=== PATIENT | female | born 1960 | race Caucasian/White ===

== ENCOUNTER 2021-03-31 10:34 | Emergency (ER) | payer OTHER, SELFPAY ==
--- NOTE | ~2021-03-31 | XR_ITS ---
EXAMINATION: XR chest 2V 03/31/2021 11:41 INDICATION: Productive cough PROCEDURE: 2 view chest COMPARISON: No prior studies for comparison. FINDINGS: The lungs are clear. The cardiomediastinal silhouette is within normal limits. There are no pleural effusions. There is no pneumothorax suspected. There is scoliosis. IMPRESSION: 1: NO ACUTE CARDIOPULMONARY DISEASE. Reviewed, dictated and finalized at location B.
[2021-03-31 11:23] VITALS: BP 144/77; PULSE 87; RESP 20; TEMP 36.7; O2SAT 98
--- NOTE | 2021-03-31 11:23 | ED.URI ---
HPI - URI/Sore Throat General Chief Complaint: Upper Respiratory Infection Stated Complaint: cough/sore throat Time Seen by Provider: 03/31/21 11:23 Source: patient Mode of arrival: ambulatory Limitations: no limitations History of Present Illness HPI Narrative: Lalitha Hernandez is a 60 yo female with debilitating depression, diabetes, hypertension, who comes with upper respiratory symptoms including a cough that started on Saturday, scratchy throat generally not feeling well she had a rapid Covid test on Saturday that was ordered by her primary care physician. Patient is not improved and is here for evaluation Related Data Allergies Allergy/AdvReac Type Severity Reaction Status Date / Time Penicillins Allergy Intermediate Rash Verified 03/31/21 11:22 Review of Systems Review of Systems: Narrative: CONSTITUTIONAL: Denies fever, chills, sweats. EYES: Denies visual changes, redness, discharge. ENT: Denies rhinorrhea, has congestion, has sore throat, otalgia. CARDIOVASCULAR: Denies chest pain, palpitations, edema. RESPIRATORY: Denies dyspnea, wheezing, has cough GASTROINTESTINAL: Denies abdominal pain, nausea, vomiting, diarrhea. GENITOURINARY: Denies dysuria, hematuria, abnormal discharge SKIN: Denies rash or itching. NEUROLOGIC: Denies numbness, or focal weakness. PSYCHIATRIC: Denies anxiety or depression. [facility] Past Medical History Medical History (Updated 03/31/21 @ 12:01 by Alaina Villalobos CNP) Depression Diabetes Hypertension Family History Family History (Updated 03/31/21 @ 11:28 by Alaina Villalobos CNP) Other Diabetes mellitus Hypertension Social History Social History Smoking status: Never smoker Alcohol intake: never Comments At time of signature, I agree with nursing past medical, surgical, social and family history. There is no relevant family history pertinent to the presenting complaint. Exam Narrative: Exam Narrative: GENERAL: This is a well-nourished, well-developed patient, in mild distress. Obese HEAD: normocephalic, atraumatic. EYES: Sclera clear/white. Vision is grossly intact. EARS: External ears normal, auditory canals clear and without drainage, TMs normal without perforation. Hearing grossly intact. NOSE: External nose normal without nasal discharge, nares without redness, no rhinorrhea. THROAT: Mucous membranes moist, posterior pharynx erythema, bilateral submandibular lymph node tenderness and enlargement NECK: Neck supple, CARDIOVASCULAR: Regular rate and rhythm without murmurs, gallops, or rubs. RESPIRATORY: Clear to auscultation. Breath sounds equal bilaterally. No wheezes, rales, or rhonchi. GASTROINTESTINAL: Abdomen soft, non-tender, SKIN: warm, intact with no suspicious lesions or rash, good texture and turgor. NEURO: awake, alert, and oriented to person, place and time. There were no obvious focal neurologic abnormalities. Steady gait EXTREMITIES: Normal range of motion. BACK: Nontender without deformity Course Course Emergency Course: Lalitha Hernandez is a 60-year-old female with debilitating depression hypertension diabetes who comes to [facility] with complaints of scratchy throat cough and pain on breathing She is afebrile Chest x-ray shows no acute cardiopulmonary disease ED patient symptoms symptoms will start on prednisone and antibiotics should follow-up with primary care physician Vital Signs Vital signs: Vital Signs Temperature 98.0 F 03/31/21 11:23 Pulse Rate 87 03/31/21 11:23 Respiratory Rate 20 03/31/21 11:23 Blood Pressure 144/77 H 03/31/21 11:23 Pulse Oximetry 98 03/31/21 11:23 Temperature 98.0 F 03/31/21 11:23 Pulse Rate 87 03/31/21 11:23 Respiratory Rate 20 03/31/21 11:23 Blood Pressure 144/77 H 03/31/21 11:23 Pulse Oximetry 98 03/31/21 11:23 MDM - URI/Sore Throat Differential Diagnosis Differential diagnosis: Likely upper respiratory infection, viral
== END 2021-03-31 12:14 | disposition home or self-care (01) ==
PROVIDERS: Emergency Provider Nurse Practitioner
DX: J02.9 Acute pharyngitis, unspecified (principal); I10 Essential (primary) hypertension; E11.9 Type 2 diabetes mellitus without complications
CPT/HCPCS: 71046; 99213; G0463

== ENCOUNTER 2021-07-13 09:17 | Emergency (ER) | payer OTHER, SELFPAY ==
--- NOTE | ~2021-07-13 | XR_ITS ---
EXAMINATION: XR chest 2V DATE: 07/13/2021 10:08 INDICATION: Nonproductive cough TECHNIQUE: PA and lateral views of the chest are obtained. COMPARISON: 03/31/2021 FINDINGS: The lungs are free of acute opacities. There is no pleural effusion or pneumothorax. The ca rdiomediastinal silhouette is normal. There is S shaped curvature of the spine. IMPRESSION: 1. No acute cardiopulmonary abnormality. Reviewed, dictated and finalized at location B.
--- NOTE | 2021-07-13 09:26 | ED.URI ---
HPI - URI/Sore Throat General Chief Complaint: Upper Respiratory Infection Stated Complaint: Cough,sore Throat Time Seen by Provider: 07/13/21 09:48 Source: patient and RN notes reviewed Mode of arrival: ambulatory Limitations: no limitations History of Present Illness HPI Narrative: 60-year-old female with history of diabetes hypertension presents with 6-day history of cough, sore throat. Reports she is called her doctor and been prescribed Tessalon Perles and Flonase. She reports symptoms seem to getting worse not better. She reports she has been vaccinated for Covid, had a negative Covid test 3 days into her illness. Reports her has similar symptoms and is also had a negative Covid test. She denies shortness of breath, loss of taste or smell, body aches. Reports sweats, fever. MD elicited complaint: cough Related Data Home Medications Medication Instructions Recorded Confirmed alprazolam 1 mg PO DIRECTED 07/13/21 07/13/21 aripiprazole 2 mg PO DAILY 07/13/21 07/13/21 benzonatate 200 mg PO DIRECTED 07/13/21 07/13/21 duloxetine 60 mg PO DIRECTED 07/13/21 07/13/21 esketamine [Spravato] 84 mg INTRANASAL DIRECTED 07/13/21 07/13/21 esomeprazole magnesium 40 mg PO DAILY 07/13/21 07/13/21 fluticasone propionate 50 mcg INTRANASAL DAILY 07/13/21 07/13/21 hydrochlorothiazide 25 mg PO DAILY 07/13/21 07/13/21 irbesartan 150 mg PO DAILY 07/13/21 07/13/21 lamotrigine 150 mg PO DAILY 07/13/21 07/13/21 levothyroxine [Synthroid] 50 mcg PO DAILY 07/13/21 07/13/21 metformin 500 mg PO DIRECTED 07/13/21 07/13/21 rosuvastatin 20 mg PO DAILY 07/13/21 07/13/21 semaglutide [Ozempic] 0.25 mg SUBCUT DIRECTED 07/13/21 07/13/21 trazodone 50 mg PO DAILY 07/13/21 07/13/21 Allergies Allergy/AdvReac Type Severity Reaction Status Date / Time Penicillins Allergy Intermediate Rash Verified 07/13/21 09:29 Review of Systems Review of Systems: CONSTITUTIONAL: Reports malaise, sweats, or fever. EYES: Denies visual changes, redness, or discharge. ENT: Reports rhinorrhea, congestion, otalgia and sore throat. CARDIOVASCULAR: Denies chest pain, palpitations, or edema. RESPIRATORY: Reports cough. Denies dyspnea. GASTROINTESTINAL: Denies abdominal pain, nausea, vomiting, diarrhea SKIN: Denies rash or itching. MUSCULOSKELETAL: Denies myalgia. NEUROLOGIC: Denies headache. All systems reviewed & are unremarkable except as noted in HPI and below PMFSH Past Medical History Medical History (Updated 07/13/21 @ 10:29 by Torri Conklin NP) Depression Diabetes Hypertension Family History Family History (Updated 03/31/21 @ 11:28 by Alaina Villalobos CNP) Other Diabetes mellitus Hypertension Social History Social History Smoking status: Never smoker Alcohol intake: never Comments At time of signature, agree with nursing past medical, surgical, social and family history. There is no relevant family history pertinent to the presenting complaint Exam Narrative: GENERAL: Well-appearing, well-nourished, and in no acute distress. HEAD: Normocephalic EYES: PERRLA, conjunctivae clear ENT: Nares clear, turbinates erythematous, clear discharge. Mucous membranes moist. TM pearly [place] with dull light reflex bilaterally; no tragal tenderness. Oropharynx erythematous without lesions. Tonsils not enlarged and without exudate, no drooling, no hoarseness, no trismus, uvula midline. NECK: Supple. No lymphadenopathy CHEST: Clear to auscultation, breath diminished in the right lower lobe. No wheezing, rhonchi, rales, or stridor. No respiratory distress, speaks in full sentences. HEART: Regular rate and rhythm. No murmur heard. SKIN: Warm, dry, no rash. NEURO: Alert and oriented x3. PSYCH: Normal mood and affect Course Course Emergency Course: Patient is aware of diagnosis, understands and agrees to treatment plan. Anticipatory guidance given. Patient agrees to follow-up as directed and
[2021-07-13 09:29] VITALS: BP 129/74; PULSE 93; RESP 16; TEMP 36.5; O2SAT 97
[2021-07-13 09:34] VITALS: BP 129/74; PULSE 93; RESP 16; TEMP 36.5; O2SAT 97
== END 2021-07-13 10:35 | disposition home or self-care (01) ==
PROVIDERS: Emergency Provider Nurse Practitioner
DX: J40 Bronchitis, not specified as acute or chronic (principal); F32.9 Major depressive disorder, single episode, unspecified; E11.9 Type 2 diabetes mellitus without complications; I10 Essential (primary) hypertension
CPT/HCPCS: 71046; 87081; 87804; 87880; 99213; G0463

== ENCOUNTER 2021-08-04 11:15 | Emergency (ER) | payer OTHER, SELFPAY ==
[2021-08-04 11:25] VITALS: BP 123/61; PULSE 86; RESP 20; TEMP 36.3; O2SAT 97
[2021-08-04 11:31] VITALS: BP 123/61; PULSE 86; RESP 20; TEMP 36.3; O2SAT 97
--- NOTE | 2021-08-04 11:56 | ED.SKABFB ---
HPI - Skin/Abscess/Foreign Bdy General Chief complaint: Skin/Abscess/Foreign Body Stated complaint: left 1st digit toe Source: patient and RN notes reviewed Mode of arrival: ambulatory History of Present Illness HPI narrative: This is a 61-year-old female presented to urgent care with complaints of pain to her great left toe due to ingrown toenail. According to patient she called her primary care physician's office who instructed her to come to urgent care. She does have an appointment with her supervisor capacitor processing on the of this month. Patient will discharge with pain medication and instructed to follow-up with her supervisor capacitor processing to make early appointment for removal of her ingrown toenail. The patient denies SOB, CP, palpitation, extremity numbness, lightheadedness, dizziness, constipation, diarrhea, chills, no redness or edema to that left great toe or fever. Patient is a diabetic Related Data Home Medications Medication Instructions Recorded Confirmed alprazolam 1 mg PO DIRECTED 07/13/21 08/04/21 aripiprazole 2 mg PO DAILY 07/13/21 08/04/21 duloxetine 60 mg PO DIRECTED 07/13/21 08/04/21 esketamine [Spravato] 84 mg INTRANASAL DIRECTED 07/13/21 08/04/21 esomeprazole magnesium 40 mg PO DAILY 07/13/21 08/04/21 hydrochlorothiazide 25 mg PO DAILY 07/13/21 08/04/21 irbesartan 150 mg PO DAILY 07/13/21 08/04/21 lamotrigine 150 mg PO DAILY 07/13/21 08/04/21 levothyroxine [Synthroid] 50 mcg PO DAILY 07/13/21 08/04/21 semaglutide [Ozempic] 0.25 mg SUBCUT DIRECTED 07/13/21 08/04/21 trazodone 50 mg PO DAILY 07/13/21 08/04/21 Allergies Allergy/AdvReac Type Severity Reaction Status Date / Time Penicillins Allergy Intermediate Rash Verified 08/04/21 11:47 Review of Systems Review of Systems: A 14 organ system Review of Systems was performed and pertinent positives included in the HPI, otherwise remaining ROS is negative. [facility] Past Medical History Medical History Depression Diabetes Hypertension Family History Family History Other Diabetes mellitus Hypertension Social History Social History Smoking status: Never smoker Alcohol intake: never Exam Narrative: GENERAL: This is a well-nourished, well-developed patient, in no apparent distress. HEAD: normocephalic, atraumatic. EYES: PERRL. Sclera clear/white. Vision is grossly intact. EARS: External ears normal, auditory canals clear and without drainage, TMs normal without perforation. Hearing grossly intact. NOSE: External nose normal with no obvious nasal discharge, nares without redness, no rhinorrhea. THROAT: Mucous membranes moist, posterior pharynx clear. NECK: Neck supple, non-tender without lymphadenopathy, masses or thyromegaly. CARDIOVASCULAR: Regular rate and rhythm without murmurs, gallops, or rubs. RESPIRATORY: Clear to auscultation. Breath sounds equal bilaterally. No wheezes, rales, or rhonchi. GASTROINTESTINAL: Abdomen soft, non-tender, nondistended. Bowel sounds are active. No hepato-splenomegaly, or palpable masses. No guarding. SKIN: warm, intact with no suspicious lesions or rash, good texture and turgor. NEURO: awake, alert, and oriented to person, place and time. There were no obvious focal neurologic abnormalities. Steady gait EXTREMITIES: Normal range of motion. No edema. No calf tenderness. Negative Homans sign bilaterally. No edema or erythematous to that great left toe. Tenderness with palpation BACK: Nontender without deformity or crepitance. No flank tenderness. Course Course Emergency Course: Patient given a short dose of [place] instructed to make an appointment with supervisor capacitor processing Vital Signs Vital signs: Vital Signs Temperature 97.3 F L 08/04/21 11:25 Pulse Rate 86 08/04/21 11:25 Respiratory Rate 20 08/04/21 11:25 Blood Pressure 123/61 08/04/21 11:25 P
[2021-08-04 12:20] VITALS: BP 108/65; PULSE 110; RESP 20; TEMP 36.5; O2SAT 100
== END 2021-08-04 12:02 | disposition home or self-care (01) ==
PROVIDERS: Emergency Provider Nurse Practitioner
DX: L60.0 Ingrowing nail (principal); F32.9 Major depressive disorder, single episode, unspecified; E11.9 Type 2 diabetes mellitus without complications; I10 Essential (primary) hypertension
CPT/HCPCS: 99213; G0463

== ENCOUNTER 2022-08-14 14:19 | Outpatient (RCR) | payer OTHER, SELFPAY ==
[2022-08-14 14:30] VITALS: BMI 48.6
[2022-08-14 15:16] VITALS: BMI 48.6
== END 2022-11-12 09:21 | disposition home or self-care (01) ==
LOC: ANHDMC 14:19
PROVIDERS: PCP Family Medicine; Visit Provider Internal Medicine
DX: E11.9 Type 2 diabetes mellitus without complications (principal); Z71.3 Dietary counseling and surveillance
CPT/HCPCS: 97802

== ENCOUNTER → 2022-10-16 10:43 | Outpatient (CLI) | payer OTHER, MEDICARE, SELFPAY ==
--- NOTE | ~2022-10-16 | CT_ITS ---
EXAMINATION: CT abdomen pelvis wo con DATE: 10/16/2022 11:27 INDICATION: Constipation TECHNIQUE: Computed tomography (CT) of the abdomen and pelvis was performed without intravenous contr ast. Automated exposure control and iterative reconstruction technique were employed. Exam dose: 968 .47 mGy-cm total exam DLP. COMPARISON: None. FINDINGS: The lung bases are clear of infiltrate or consolidation. Normal heart size. No pericardial or pleural effusion. No hepatic, splenic, pancreatic, adrenal or renal space-occupying mass lesion is detected. No bile du ct or pancreatic duct dilatation. No gallbladder wall thickening or pericholecystic fluid or fat stra nding. No urinary tract calculus or hydroureteronephrosis. The urinary bladder, uterus and adnexal areas are unremarkable. Normal caliber of the abdominal aorta. No intraperitoneal or retroperitoneal or pelvic mass lesion or adenopathy or ascites. Normal appendix. Diverticulosis of the colon; no CT evidence of diverticulitis. No bowel obstruction, bowel wall thickening, pneumatosis or intraperitoneal free air. Small fat-containing umbilical hernia. Scoliosis and degenerative changes of the thoracic and lumbar spine IMPRESSION: No bowel obstruction or constipation Normal appendix Diverticulosis of the colon; no CT evidence of diverticulitis Reviewed, dictated and finalized at Location [facility]. Reviewed, dictated and finalized at location A. [employer]
== END ==
PROVIDERS: PCP Family Medicine; Visit Provider Family Medicine
DX: K59.09 Other constipation (principal); K57.90 Diverticulosis of intestine, part unspecified, without perforation or abscess without bleeding
CPT/HCPCS: 74176

== ENCOUNTER 2022-12-06 14:19 | Outpatient (RCR) | payer MEDICARE, SELFPAY ==
[2022-12-06 15:07] VITALS: BMI 47.5
[2022-12-06 15:08] VITALS: BMI 47.5
== END 2023-02-25 10:47 | disposition home or self-care (01) ==
LOC: ANHDMC 14:19
PROVIDERS: PCP Family Medicine; Visit Provider Internal Medicine
DX: E11.9 Type 2 diabetes mellitus without complications (principal); Z71.3 Dietary counseling and surveillance
CPT/HCPCS: 97803

== ENCOUNTER → 2023-02-19 08:55 | Outpatient (CLI) | payer MEDICARE, SELFPAY ==
--- NOTE | ~2023-02-19 | US_ITS ---
Limited Abdominal Sonogram: Real-time sonographic imaging of the right upper quadrant was performed. Clinical History: Right upper quadrant pain Findings: The liver appears echogenic, with no evidence of mass lesion or bile duct dilatation. Main portal vein demonstrates normal direction of flow. The gallbladder is well distended, and appears no rmal with no evidence of gallstone or wall thickening. The common bile duct measures 3 mm. The visua lized pancreas, aorta, and IVC are unremarkable. Right kidney measures 11.4 cm in length, without porsha dence of hydronephrosis. Impression: Diffuse fatty infiltration of the liver. Reviewed, dictated and finalized at location M. Impression: Diffuse fatty infiltration of the liver.
== END ==
PROVIDERS: PCP Family Medicine; Visit Provider Family Medicine
DX: R10.811 Right upper quadrant abdominal tenderness (principal); K76.0 Fatty (change of) liver, not elsewhere classified
CPT/HCPCS: 76705

== ENCOUNTER 2024-01-18 11:57 | Outpatient (CLI) | payer MEDICARE, SELFPAY ==
[2024-01-18 12:28] LABS: Hemoglobin 11.8 g/dL (12.0-15.0)
[2024-01-18 12:39] LABS: Anion Gap 9 mmol/L (8-16); Blood Urea Nitrogen 11 mg/dL (7-17); Calcium 10.1 mg/dL (8.4-10.2); Carbon Dioxide 27 mmol/L (22-30); Chloride 103 mmol/L (98-107); Estimated Glomerular Filt Rate > 60; Glucose 106 mg/dL (65-110); Potassium 3.7 mmol/L (3.4-5.0); Prothrombin Time 13.7 Seconds (11.1-14.7); Sodium 139 mmol/L (137-145)
[2024-01-18 12:40] LABS: Partial Thromboplastin Time 27.9 SECONDS (22.3-36.8)
== END 2024-01-18 11:58 | disposition home or self-care (01) ==
LOC: ANHLAB 12:00
PROVIDERS: PCP Family Medicine; Visit Provider Anesthesiology
DX: N95.0 Postmenopausal bleeding (principal); K76.0 Fatty (change of) liver, not elsewhere classified; Z01.818 Encounter for other preprocedural examination
CPT/HCPCS: 36415; 80048; 85014; 85018; 85610; 85730

== ENCOUNTER 2024-01-20 00:13 | Day surgery (SDC) | payer MEDICARE, SELFPAY ==
[2024-01-17 11:31] VITALS: BMI 45.3
--- NOTE | 2024-01-17 11:57 | PC.NURSE ---
Report to the Outpatient Waiting Room, entrance under the green pavilion located off [facility], at time __11:45AM on date ___01/20/24____. Planned Procedure Time: ___1:45PM . Time changes happen often and if your time is changed the preop area will call you the afternoon before. - You and your visitor will be asked to self-screen and do not enter if you have any COVID symptoms. - A mask is optional within the hospital at this time. Patients may have clear liquids (water, carbonated beverages, clear teas, apple juice) until 3 hours prior to surgery with a maximum of 20 ounces. - No food from midnight until time of surgery. Take the following medications with a SIP of water the morning of surgery: ____ALPRAZOLAM, LAMOTRIGINE, LEVOTHYROXINE, VILAZODONE____ DO NOT STOP ANY OF YOUR OTHER PRESCRIPTION MEDICATIONS PRIOR TO SURGERY ?EXCEPT THE FOLLOWING Medications to discontinue per physician ___HOLD ALL VITAMINS/SUPPLEMENTS 3 DAYS PRE-OP Date to take last dose____01/17/24 Please no make-up, nail belarusian, hairspray, perfume, deodorant, or body powder the day of surgery. No jewelry (including any body piercings) or valuables the day of surgery, leave them at home. Please take a shower or bath the night before, or the morning of, surgery with an antibacterial soap. Wear comfortable, loose fitting clothing - Jewelry must be removed prior to entering the operating room. Rings and piercings that are not removed may be cut off. - The hospital will not accept responsibility for valuables. - Please leave all valuables, including medications, at home the day of surgery. If you are going home after surgery, a licensed test driver must drive you home. - NO public transportation without another adult if you receive anesthesia. - We recommend that an adult stay with you for 24 hours following discharge. - We also recommend that you do not drive, make important decision, drink alcoholic beverages, or take any drugs that were not prescribed by your health care provider for at least 24 hours after your discharge time. Follow any additional instructions given to you from your surgeon. If you or anyone in your household have experienced Covid symptoms in the past week, please notify your surgeon or the nurse liaison at the phone number below for possible testing. Telephone instructions given to ___PATIENT and asked if any additional questions and then verbalized understanding. Patient advised to call surgeon office or pre surgery nurse liaison [phone] if any additional questions. Report to the Outpatient Waiting Room, entrance under the green pavilion located off [facility], at time on date . Planned Procedure Time: . Time changes happen often and if your time is changed the preop area will call you the afternoon before. - You and your visitor will be asked to self-screen and do not enter if you have any COVID symptoms. - A mask is optional within the hospital at this time. Patients may have clear liquids (water, carbonated beverages, clear teas, apple juice) until 3 hours prior to surgery with a maximum of 20 ounces. - No food from midnight until time of surgery - Infants may have breast milk until 4 hours before surgery, formula 6 hours prior to surgery. - Children will be allowed to drink immediately following surgery. If applicable, please bring a bottle or sippy cup to assist with drinking. Juice, water, soda, and popsicles are readily available. For infants on formula, please bring formula the day of surgery. Pacifiers are allowed. Take the following medications with a SIP of water the morning of surgery: DO NOT STOP ANY OF YOUR OTHER PRESCRIPTION MEDICATIONS PRIOR TO SURGERY ?EXCEPT THE FOLLOWING Medications to discontinue per physician Date to take last dose Please no
--- NOTE | 2024-01-20 08:48 | WPDHPUPDATE1 ---
History and Physical Update Update Date/Time: 01/20/24 08:48 History and Physical has been reviewed, including an updated exam of the patient. There are NO changes in the patient's condition. Risks, benefits, and alternatives have been discussed and questions answered. Patient agrees to proceed with procedure.
--- NOTE | 2024-01-20 08:48 | PM.HPGS ---
History of Present Illness History of Present Illness Consent: Risks, benefits, and alternatives have been discussed and questions answered. Patient agrees to proceed with procedure. Chief complaint: Post Menopausal Bleeding Narrative: Lalitha Hernandez is a 63 year old female with 2 episodes of postmenopausal bleeding. Patient underwent pelvic ultrasound which reveals a thickened endometrium at 1.78cm. It was recommended to undergo D&C hysteroscopy. Risks of infection, bleeding, perforation, and possible pathology are discussed. Patient voices understanding and agrees to proceed. Review of Systems Review of Systems: not repeated day of surgery; patient states no changes in status [facility] Past Medical History Medical History (Updated 01/20/24 @ 08:52 by Marcelina Park MD) Anxiety Depression Diabetes Elevated cholesterol GERD (gastroesophageal reflux disease) Hypertension OCD (obsessive compulsive disorder) Surgical History Surgical History (Updated 01/20/24 @ 08:51 by Marcelina Park MD) History of History of foot surgery 1993 benign tumor removed status post a right foot fracture with repair History of shoulder surgery 2021 Family History Family History Other Diabetes mellitus Hypertension Social History Social History (System 07/10/22 @ 08:24 by Heriberto Pina) Smoking status: Never smoker Alcohol intake: never Living arrangements: with family Additional living arrangements comments: [facility] Spiritual care concerns: No Meds Home Medications and Allergies Home Medications Medication Instructions Recorded Confirmed Type alprazolam 1 mg tablet 1 mg PO BID 07/13/21 01/17/24 History aripiprazole 2 mg tablet 2 mg PO HS 07/13/21 01/17/24 History duloxetine 60 mg capsule,delayed 60 mg PO 07/13/21 01/17/24 History release hydrochlorothiazide 25 mg tablet 25 mg PO QAM 07/13/21 01/17/24 History irbesartan 150 mg tablet 150 mg PO QAM 07/13/21 01/17/24 History lamotrigine 150 mg tablet 150 mg PO QAM 07/13/21 01/17/24 History levothyroxine 50 mcg tablet 50 mcg PO QAM 07/13/21 01/17/24 History (Synthroid) trazodone 50 mg tablet 50 mg PO HS 07/13/21 01/17/24 History ascorbic acid (vitamin C) 500 mg 250 mg PO DAILY 01/17/24 01/17/24 History tablet cholecalciferol (vitamin D3) 25 25 mcg PO WEEKLY 01/17/24 01/17/24 History mcg (1,000 unit) capsule cholestyramine (with sugar) 4 gram 1 ea PO BID 01/17/24 01/17/24 History powder for susp in a packet clotrimazole-betamethasone 1 1 applic topical BID 01/17/24 01/17/24 History %-0.05 % topical cream cyanocobalamin (vitamin B-12) 100 100 mcg PO DAILY 01/17/24 01/17/24 History mcg tablet estradiol 0.01% (0.1 mg/gram) 1 appful vaginal 2XW 01/17/24 01/17/24 History vaginal cream ferrous sulfate 325 mg (65 mg 325 mg PO DAILY 01/17/24 01/17/24 History iron) tablet metformin 850 mg tablet 850 mg PO BID 01/17/24 01/17/24 History multivitamin 1 tablet PO DAILY 01/17/24 01/17/24 History pantoprazole 40 mg tablet,delayed 40 mg PO DAILY 01/17/24 01/17/24 History release ropinirole 1 mg tablet 1 mg PO HS 01/17/24 01/17/24 History rosuvastatin 20 mg tablet 20 mg PO QAM 01/17/24 01/17/24 History vilazodone 40 mg tablet 40 mg PO QAM 01/17/24 01/17/24 History zinc 50 mg capsule 50 mg PO DAILY 01/17/24 01/17/24 History Allergies Allergy/AdvReac Type Severity Reaction Status Date / Time Penicillins Allergy Intermediate Itching Verified 01/17/24 11:14 shellfish derived Allergy Itching Verified 01/17/24 11:14 Exam Const: General: healthy appearing and alert Orientation/consciousness: patient oriented x3 Resp: Effort & Inspection: normal respiratory effort : External Female Exam: normal external appearance Speculum Exam - Vagina: normal appearance of the vagina and normal vaginal discharge Speculum Exam - Cervix: normal appearance of the cer
[2024-01-20] MEDS: ACETAMINOPHEN 500 MG TABLET 1000 MG PO (12:22)
--- NOTE | 2024-01-20 12:25 | WPDANESEPPF ---
Anes - Initial Pre Proc Eval Procedure: Operation Date: 01/20/24 13:45 Proposed Procedures p Hysteroscopy Dilation and Curettage - Marcelina Park MD Date/Time: 01/20/24 12:25 Surgeon: Marcelina Park MD Pre Op Diagnosis: Post Menopausal Bleeding Patient Data Age: 63 Gender: F Height: 1.63 m Weight: 120 kg Allergies Allergy/AdvReac Type Severity Reaction Status Date / Time Penicillins Allergy Intermediate Itching Verified 01/20/24 12:06 shellfish derived Allergy Itching Verified 01/20/24 12:06 Home Medications Medication Instructions Recorded Confirmed Type alprazolam 1 mg tablet 1 mg PO BID 07/13/21 01/17/24 History aripiprazole 2 mg tablet 2 mg PO HS 07/13/21 01/17/24 History duloxetine 60 mg capsule,delayed 60 mg PO HS 07/13/21 01/17/24 History release hydrochlorothiazide 25 mg tablet 25 mg PO QAM 07/13/21 01/17/24 History irbesartan 150 mg tablet 150 mg PO QAM 07/13/21 01/17/24 History lamotrigine 150 mg tablet 150 mg PO QAM 07/13/21 01/17/24 History levothyroxine 50 mcg tablet 50 mcg PO QAM 07/13/21 01/17/24 History (Synthroid) trazodone 50 mg tablet 50 mg PO HS 07/13/21 01/17/24 History ascorbic acid (vitamin C) 500 mg 250 mg PO DAILY 01/17/24 01/17/24 History tablet cholecalciferol (vitamin D3) 25 25 mcg PO WEEKLY 01/17/24 01/17/24 History mcg (1,000 unit) capsule cholestyramine (with sugar) 4 gram 1 ea PO BID 01/17/24 01/17/24 History powder for susp in a packet clotrimazole-betamethasone 1 1 applic topical BID 01/17/24 01/17/24 History %-0.05 % topical cream cyanocobalamin (vitamin B-12) 100 100 mcg PO DAILY 01/17/24 01/17/24 History mcg tablet estradiol 0.01% (0.1 mg/gram) 1 appful vaginal 2XW 01/17/24 01/17/24 History vaginal cream ferrous sulfate 325 mg (65 mg 325 mg PO DAILY 01/17/24 01/17/24 History iron) tablet metformin 850 mg tablet 850 mg PO BID 01/17/24 01/17/24 History multivitamin 1 tablet PO DAILY 01/17/24 01/17/24 History pantoprazole 40 mg tablet,delayed 40 mg PO DAILY 01/17/24 01/17/24 History release ropinirole 1 mg tablet 1 mg PO HS 01/17/24 01/17/24 History rosuvastatin 20 mg tablet 20 mg PO QAM 01/17/24 01/17/24 History vilazodone 40 mg tablet 40 mg PO QAM 01/17/24 01/17/24 History zinc 50 mg capsule 50 mg PO DAILY 01/17/24 01/17/24 History Patient hx anesthesia problems: none Family hx anesthesia problems: none Results Review: All pre-operative results and documents have been reviewed as part of the pre-operative evaluation. [facility] Past Medical History Medical History Anxiety Depression Diabetes Elevated cholesterol GERD (gastroesophageal reflux disease) Hypertension OCD (obsessive compulsive disorder) Surgical History Surgical History History of History of foot surgery 1993 benign tumor removed status post a right foot fracture with repair History of shoulder surgery 2021 Family History Family History Other Cerebrovascular accident Diabetes mellitus Family history of alcoholism Family history of cardiovascular disease Family history of mental disorder Hypertension Social History Social History (System 07/10/22 @ 08:24 by Heriberto Pina) Smoking status: Never smoker Alcohol intake: never Living arrangements: with family Additional living arrangements comments: [facility] Spiritual care concerns: No Anes - Eval Final PreProcedure Day of Procedure 01/20/24 12:25 Patient weight: morbidly obese Heart: regular rate and rhythm Lungs: clear to auscultation Airway: Mallampati scale class II Neurological: alert and oriented Last oral intake: >/= 8 hours ASA classification: III Emergent: no Anesthetic plan: proceed Anesthesia type and monitoring: general GIVS and standard monitoring Results Review: Lonnie leon
[2024-01-20 12:37] VITALS: BP 140/81; PULSE 93; RESP 16; TEMP 37.2; O2SAT 96
[2024-01-20] MEDS: LACTATED RINGERS 1,000 ML 30 ML IV CONT (12:42)
[2024-01-20 12:43] LABS: Glucose Point of Care 99 mg/dl (65-105)
--- NOTE | 2024-01-20 13:24 | P.OP_ITS ---
Procedure Note - Detailed Date of Procedure 01/20/24 Pre-op Diagnosis Post Menopausal Bleeding Post-op Diagnosis Same Procedure Performed D&C hysteroscopy Surgeon Marcelina Park MD Anesthesia MAC Findings external and internal cervix are stenotic; the uterus is very anteverted; the endometrium appears atrophic Description of Procedure The patient was taken to the operating room and placed under anesthesia in the dorsal lithotomy position. She was prepped and draped in the usual sterile fashion. [place] speculum was placed in the vagina and the cervix grasped on the anterior lip with a tenaculum. The external os is stenotic. The 4/5 Hegar is used to open the external os. this also passed through the internal os. The uterus was then able to be sounded to 8cm and the cavity was noted to be very anteverted. The diagnostic hysteroscope was placed and following the cervical canal the speculum had to be removed in order to get the proper angle. The cavity appeared grossly normal therefore the camera was removed. The speculum was replaced and the OO sharp curette was is placed while having the speculum and a 90 degree angle to the usual. The sharp curette is then used to curette the endometrium until a good uterine cry was noted in all areas. Minimal material was obtained consistent with the atrophic appearance. All instruments are removed. Sponge, needle, and instrument counts are correct per the OR staff. The patient is taken to recovery in stable condition. Estimated Blood Loss 5 Drains No Packing No Pathology Yes ( Endometrial curettings) Complications No immediate complications Condition Stable Disposition PACU
[2024-01-20 13:25] VITALS: BP 120/63; PULSE 87; RESP 20; O2SAT 100
[2024-01-20 13:31] LABS: Glucose Point of Care 103 mg/dl (65-105)
[2024-01-20 13:55] VITALS: BP 127/72; PULSE 88; RESP 20
[2024-01-20] MEDS: oxyCODONE HCL (*CRX) 5 MG TAB IR PO (13:58)
[2024-01-20 14:20] VITALS: BP 132/68; PULSE 78; RESP 20
== END 2024-01-20 14:25 | disposition home or self-care (01) ==
PROVIDERS: PCP Family Medicine; Visit Provider Obstetrics & Gynecology Gynecology
PROC: 0U5B8ZZ Destruction of Endometrium, Via Natural or Artificial Opening Endoscopic (ICD-10-PCS; CPT 58563; principal; 2024-01-20 13:45)
DX: N95.0 Postmenopausal bleeding (principal); N85.8 Other specified noninflammatory disorders of uterus; I10 Essential (primary) hypertension; E78.00 Pure hypercholesterolemia, unspecified; E11.9 Type 2 diabetes mellitus without complications; K21.9 Gastro-esophageal reflux disease without esophagitis; F41.9 Anxiety disorder, unspecified; F32.A Depression, unspecified; E66.01 Morbid (severe) obesity due to excess calories; Z68.42 Body mass index [BMI] 45.0-49.9, adult; Z79.84 Long term (current) use of oral hypoglycemic drugs
CPT/HCPCS: 58558; 82948; 88305; A9270; J2250; J2704; J3010; J7120